=== PATIENT | male | born 1970 | race Caucasian/White ===

== ENCOUNTER 2019-10-28 17:42 | Inpatient (IN) | payer MEDICAID, OTHER ==
[~2019-10-28] VITALS: Ht 172.7 cm; Wt 125.6 kg
[2019-10-28 18:48] LABS: BASOPHILS # (AUTO) 0.1 X10'3 (0-0.2); EOSINOPHILS # (AUTO) 0.3 X10'3 (0-0.9); EOSINOPHILS % (AUTO) 2.5 % (0-6); HEMATOCRIT 44.6 % (42.0-52.0); HEMOGLOBIN 14.9 g/dl (14.0-17.9); LYMPHOCYTES # (AUTO) 2.5 X10'3 (1.1-4.8); LYMPHOCYTES % (AUTO) 24.7 % (21-51); MEAN CORPUSCULAR HEMOGLOBIN 33.2 PG (27.0-31.0); MEAN CORPUSCULAR HGB CONC 33.4 g/dL (33.0-36.5); MEAN CORPUSCULAR VOLUME 99.3 FL (78-98); MEAN PLATELET VOLUME 9.4 FL (7.4-10.4); MONOCYTES # (AUTO) 1.3 X10'3 (0-0.9); MONOCYTES % (AUTO) 13.1 % (2-12); NEUTROPHILS # (AUTO) 5.9 X10'3 (1.8-7.7); NEUTROPHILS % (AUTO) 58.7 % (42-75); PLATELET COUNT 274 X10'3 (140-440); RED BLOOD COUNT 4.49 X10'6 (4.70-6.10); RED CELL DISTRIBUTION WIDTH 15.1 % (11.5-14.5); WHITE BLOOD COUNT 10.1 X10'3 (4.5-11.0)
[2019-10-28 19:00] LABS: ALANINE AMINOTRANSFERASE 41 U/L (12-78); ALBUMIN 3.3 G/DL (3.4-5.0); ALBUMIN/GLOBULIN RATIO 0.7 (1.1-1.5); ALKALINE PHOSPHATASE 109 IU/L (46-116); ANION GAP 8 (8-16); ASPARTATE AMINO TRANSFERASE 25 U/L (10-37); BILIRUBIN,TOTAL 0.6 MG/DL (0.1-1.0); BLOOD UREA NITROGEN 19 MG/DL (7-18); BUN/CREATININE RATIO 17.4 (5.4-32.0); CALCIUM 9.3 MG/DL (8.5-10.1); CHLORIDE 97 MMOL/L (99-107); CREATININE 1.09 MG/DL (0.60-1.10); GLUCOSE 112 MG/DL (70-104); POTASSIUM 3.6 MMOL/L (3.5-5.1); SODIUM 135 MMOL/L (135-145); TOTAL CARBON DIOXIDE 30.3 MMOL/L (24-32); TOTAL PROTEIN 8.1 G/DL (6.4-8.2); eGFR 72 ML/MIN
[2019-10-28] MEDS ORDERED: furosemide 10 MG/1 ML 10ml inj IV ONE (19:20)
[2019-10-28] MEDS ORDERED: acetaminophen 325mg tablet PO PRN (19:25)
[2019-10-28] MEDS ORDERED: potassium CL 10mEq/100ml bag 100 ML IV PRN ×2 (19:25)
[2019-10-28] MEDS ORDERED: magnesium 2GM in 50ml NS 50 ML IV PRN (19:25)
[2019-10-28] MEDS ORDERED: magnesium Cl slow-release 64mg tablet PO PRN (19:25)
[2019-10-28] MEDS ORDERED: magnesium 4gm in 100ml NS 100 ML IV PRN (19:25)
[2019-10-28] MEDS ORDERED: ondansetron/PF 4mg/2ml inj IV PRN (19:25)
[2019-10-28] MEDS ORDERED: potassium Cl 20 mEq SR tablet PO PRN ×2 (19:25)
[2019-10-28] MEDS ORDERED: heparin, porcine 5000 units/ml vial SQ SCH (20:00)
[2019-10-28] MEDS ORDERED: CARV6.253 PO (20:25)
[2019-10-28] MEDS ORDERED: POTA10TA19 PO (20:25)
[2019-10-28] MEDS ORDERED: LISI-604 PO (20:25)
[2019-10-28] MEDS ORDERED: FURO80TA3 PO (20:25)
[2019-10-28] MEDS ORDERED: SIMV-42 PO (20:25)
[2019-10-28] MEDS ORDERED: SPIR25TA5 PO (20:25)
[2019-10-28] MEDS ORDERED: DABI150C PO (20:25)
[2019-10-28] MEDS ORDERED: DIGO125T PO (20:25)
[2019-10-28 21:00] VITALS: BP 117/85
[2019-10-28 23:00] VITALS: BP 115/77
[2019-10-28] MEDS: digoxin 125mcg (0.125mg) tablet PO SCH (23:35)
[2019-10-28] MEDS: lisinopril 5mg tablet PO SCH (23:35)
[2019-10-29] VITALS (7 sets, daily range): BP systolic 97–131; BP diastolic 69–85
[2019-10-29] MEDS ORDERED: piperacillin/tazo 3.375gm/50ml 50 ML IV SCH ×2 (00:23)
--- NOTE | 2019-10-29 00:50 | NUR ---
RE Non-admin of Digoxin & Lisinopril: Patient reports last taking his daily medications at 1600 11/ including Digoxin & Lisinopril. Next scheduled doses are scheduled for 0800 12/
[2019-10-29 00:59] LABS: ALBUMIN 3.1 G/DL (3.4-5.0); ANION GAP 6 (8-16); BLOOD UREA NITROGEN 19 MG/DL (7-18); BUN/CREATININE RATIO 16.8 (5.4-32.0); CALCIUM 8.9 MG/DL (8.5-10.1); CHLORIDE 98 MMOL/L (99-107); CREATININE 1.13 MG/DL (0.60-1.10); GLUCOSE 101 MG/DL (70-104); MAGNESIUM 1.8 MG/DL (1.5-2.4); POTASSIUM 3.5 MMOL/L (3.5-5.1); SODIUM 137 MMOL/L (135-145); TOTAL CARBON DIOXIDE 32.6 MMOL/L (24-32); eGFR 69 ML/MIN
[2019-10-29 06:04] LABS: BASOPHILS # (AUTO) 0.1 X10'3 (0-0.2); EOSINOPHILS # (AUTO) 0.2 X10'3 (0-0.9); EOSINOPHILS % (AUTO) 1.9 % (0-6); HEMATOCRIT 42.8 % (42.0-52.0); HEMOGLOBIN 14.5 g/dl (14.0-17.9); LYMPHOCYTES # (AUTO) 2.5 X10'3 (1.1-4.8); LYMPHOCYTES % (AUTO) 23.3 % (21-51); MEAN CORPUSCULAR HEMOGLOBIN 33.5 PG (27.0-31.0); MEAN CORPUSCULAR HGB CONC 33.8 g/dL (33.0-36.5); MEAN CORPUSCULAR VOLUME 98.9 FL (78-98); MEAN PLATELET VOLUME 9.5 FL (7.4-10.4); MONOCYTES # (AUTO) 1.4 X10'3 (0-0.9); MONOCYTES % (AUTO) 12.9 % (2-12); NEUTROPHILS # (AUTO) 6.5 X10'3 (1.8-7.7); NEUTROPHILS % (AUTO) 60.9 % (42-75); PLATELET COUNT 267 X10'3 (140-440); RED BLOOD COUNT 4.33 X10'6 (4.70-6.10); RED CELL DISTRIBUTION WIDTH 15.1 % (11.5-14.5); WHITE BLOOD COUNT 10.6 X10'3 (4.5-11.0)
--- NOTE | 2019-10-29 06:37 | NUR ---
Problems reprioritized. Patient report given, questions answered & plan of care reviewed with Josey RN.
--- NOTE | 2019-10-29 06:45 | NUR ---
Patient in room PCU 3018. I have received report from MARYBETH Gallego and had the opportunity to ask questions and assume patient care.
[2019-10-29] MEDS: spironolactone 25 MG tablet PO SCH (07:50)
[2019-10-29] MEDS: furosemide 40mg/4ml inj IV SCH ×2 (07:54→20:29)
[2019-10-29] MEDS: digoxin 125mcg (0.125mg) tablet PO SCH (07:55)
[2019-10-29] MEDS: carvedilol 6.25mg tablet PO SCH ×2 (07:56→20:31)
[2019-10-29] MEDS: K and/or MAG REPLACEMENT MC SCH (08:00)
[2019-10-29] MEDS: lisinopril 5mg tablet PO SCH (08:05)
[2019-10-29] MEDS: dabigatran 150mg capsule PO SCH ×2 (08:05→20:31)
[2019-10-29] MEDS: cefepime 1GM in D5W 50mL 50 ML IV SCH ×2 (09:35→17:01)
--- NOTE | 2019-10-29 13:00 | NUR ---
Problems reprioritized. Patient report given, questions answered & plan of care reviewed with MARYBETH Cortes. Pt moving to [facility].
--- NOTE | 2019-10-29 13:15 | NUR ---
Pt transferred to [facility] unit with all belongings.
--- NOTE | 2019-10-29 13:20 | NUR ---
Arrived to room 316 on [facility] unit at this time, Josey reported/transferred care to this nurse.
--- NOTE | 2019-10-29 18:00 | NUR ---
Patient in room MED 316. I have received report from Sophia RUEDA and had the opportunity to ask questions and assume patient care.
--- NOTE | 2019-10-29 18:20 | NUR ---
Problems reprioritized. Patient report given, questions answered & plan of care reviewed with Zita RUEDA.
--- NOTE | 2019-10-29 19:40 | NUR ---
PT C/O PAIN 06/07 IN HIS BACK. NO PAIN MEDICATIONS ORDERED. CALLED DR. GRIFFIN FOR PAIN MEDICATION. ORDERS RECEIVED.
[2019-10-29] MEDS: lactobacillus rhamnosus 10,000 MMU CELLS/CAPSULE PO SCH (20:30)
[2019-10-29] MEDS: atorvastatin 10mg tablet PO SCH (20:31)
[2019-10-29] MEDS: oxyCODONE/APAP 5-325mg tablet PO PRN (20:31)
[2019-10-29] MEDS ORDERED: VANCOMYCIN LEVEL IV ONE (23:30)
[2019-10-30] MEDS: cefepime 1GM in D5W 50mL 50 ML IV SCH ×3 (00:45→15:30)
[2019-10-30 02:00] VITALS: BP 125/65
[2019-10-30 04:24] LABS: BASOPHILS # (AUTO) 0.1 X10'3 (0-0.2); BASOPHILS % (AUTO) 1.3 % (0-1); EOSINOPHILS # (AUTO) 0.2 X10'3 (0-0.9); EOSINOPHILS % (AUTO) 2.2 % (0-6); HEMATOCRIT 42.7 % (42.0-52.0); HEMOGLOBIN 14.2 g/dl (14.0-17.9); LYMPHOCYTES # (AUTO) 2.9 X10'3 (1.1-4.8); LYMPHOCYTES % (AUTO) 26.9 % (21-51); MEAN CORPUSCULAR HEMOGLOBIN 32.6 PG (27.0-31.0); MEAN CORPUSCULAR HGB CONC 33.3 g/dL (33.0-36.5); MEAN CORPUSCULAR VOLUME 97.8 FL (78-98); MEAN PLATELET VOLUME 9.6 FL (7.4-10.4); MONOCYTES # (AUTO) 1.3 X10'3 (0-0.9); MONOCYTES % (AUTO) 12.2 % (2-12); NEUTROPHILS # (AUTO) 6.1 X10'3 (1.8-7.7); NEUTROPHILS % (AUTO) 57.4 % (42-75); PLATELET COUNT 268 X10'3 (140-440); RED BLOOD COUNT 4.37 X10'6 (4.70-6.10); RED CELL DISTRIBUTION WIDTH 14.9 % (11.5-14.5); WHITE BLOOD COUNT 10.6 X10'3 (4.5-11.0)
[2019-10-30 04:32] LABS: ALBUMIN 3.1 G/DL (3.4-5.0); ANION GAP 8 (8-16); BLOOD UREA NITROGEN 22 MG/DL (7-18); BUN/CREATININE RATIO 18.6 (5.4-32.0); CALCIUM 8.8 MG/DL (8.5-10.1); CHLORIDE 99 MMOL/L (99-107); CREATININE 1.18 MG/DL (0.60-1.10); GLUCOSE 105 MG/DL (70-104); MAGNESIUM 1.8 MG/DL (1.5-2.4); POTASSIUM 3.6 MMOL/L (3.5-5.1); SODIUM 138 MMOL/L (135-145); TOTAL CARBON DIOXIDE 30.6 MMOL/L (24-32); eGFR 66 ML/MIN
[2019-10-30 06:00] VITALS: BP 111/79
--- NOTE | 2019-10-30 06:15 | NUR ---
Patient in room MED 316. I have received report from MARYBETH Ahumada and had the opportunity to ask questions and assume patient care.
[2019-10-30] MEDS: oxyCODONE/APAP 5-325mg tablet PO PRN ×2 (07:16→22:52)
[2019-10-30] MEDS: lactobacillus rhamnosus 10,000 MMU CELLS/CAPSULE PO SCH ×2 (07:17→20:57)
[2019-10-30] MEDS: carvedilol 6.25mg tablet PO SCH ×2 (07:17→20:57)
[2019-10-30] MEDS: lisinopril 5mg tablet PO SCH (07:17)
[2019-10-30] MEDS: digoxin 125mcg (0.125mg) tablet PO SCH (07:19)
[2019-10-30] MEDS: K and/or MAG REPLACEMENT MC SCH (07:19)
[2019-10-30] MEDS: spironolactone 25 MG tablet PO SCH (07:19)
[2019-10-30] MEDS: furosemide 40mg/4ml inj IV SCH ×2 (07:19→20:57)
[2019-10-30] MEDS: dabigatran 150mg capsule PO SCH ×2 (08:37→20:57)
[2019-10-30] MEDS: VANCOmycin 1250MG/NS 250ml Bag 250 ML IV SCH ×2 (08:38→16:20)
--- NOTE | 2019-10-30 10:53 | NUR ---
[place] documentation: I have reviewed and agree with all interventions, assessments performed and documented by Herlinda RUEDA. [place] Medication Administration: For this medication-pass time frame, all medication were reviewed, dispensed, administered and documented per hospital policy by Herlinda RUEDA.
[2019-10-30 11:00] VITALS: BP 107/72
[2019-10-30 18:00] VITALS: BP 133/91
--- NOTE | 2019-10-30 18:20 | NUR ---
received report from MARYBETH Cortes
--- NOTE | 2019-10-30 18:28 | NUR ---
Problems reprioritized. Patient report given, questions answered & plan of care reviewed with MARYBETH Spencer.
[2019-10-30] MEDS: atorvastatin 10mg tablet PO SCH (20:57)
[2019-10-30 22:00] VITALS: BP 116/76
[2019-10-30] MEDS ORDERED: VANCOMYCIN LEVEL IV ONE (23:30)
[2019-10-31] MEDS: VANCOmycin 1250MG/NS 250ml Bag 250 ML IV SCH
--- NOTE | 2019-10-31 | NUR ---
pt had a 5 run of v-tach on 2229--pt has AICD. hospitalist notified. will continue to monitor.
[2019-10-31] MEDS: cefepime 1GM in D5W 50mL 50 ML IV SCH ×2 (00:05→08:00)
--- NOTE | 2019-10-31 00:30 | NUR ---
critical vanco level of 21.8, pharmacy notified to adjust dose.
[2019-10-31 02:00] VITALS: BP 120/84
--- NOTE | 2019-10-31 03:21 | NUR ---
going on tele 25, telecom specialist notified
[2019-10-31 06:00] VITALS: BP 121/78
[2019-10-31 06:18] LABS: BASOPHILS # (AUTO) 0.1 X10'3 (0-0.2); EOSINOPHILS # (AUTO) 0.2 X10'3 (0-0.9); HEMATOCRIT 43.3 % (42.0-52.0); HEMOGLOBIN 14.3 g/dl (14.0-17.9); LYMPHOCYTES # (AUTO) 2.2 X10'3 (1.1-4.8); LYMPHOCYTES % (AUTO) 21.3 % (21-51); MEAN CORPUSCULAR HEMOGLOBIN 33.1 PG (27.0-31.0); MEAN CORPUSCULAR VOLUME 100.2 FL (78-98); MEAN PLATELET VOLUME 10.4 FL (7.4-10.4); MONOCYTES # (AUTO) 1.3 X10'3 (0-0.9); MONOCYTES % (AUTO) 12.9 % (2-12); NEUTROPHILS # (AUTO) 6.5 X10'3 (1.8-7.7); NEUTROPHILS % (AUTO) 62.8 % (42-75); PLATELET COUNT 287 X10'3 (140-440); RED BLOOD COUNT 4.32 X10'6 (4.70-6.10); RED CELL DISTRIBUTION WIDTH 14.9 % (11.5-14.5); WHITE BLOOD COUNT 10.3 X10'3 (4.5-11.0)
--- NOTE | 2019-10-31 06:20 | NUR ---
Patient in room MED 316. I have received report from MARYBETH Spencer and had the opportunity to ask questions and assume patient care.
--- NOTE | 2019-10-31 06:40 | NUR ---
gave report fernandez Fairchild RN and Herlinda RUEDA "o"
[2019-10-31 06:52] LABS: ALBUMIN 3.1 G/DL (3.4-5.0); ANION GAP 7 (8-16); BLOOD UREA NITROGEN 21 MG/DL (7-18); BUN/CREATININE RATIO 18.6 (5.4-32.0); CHLORIDE 99 MMOL/L (99-107); CREATININE 1.13 MG/DL (0.60-1.10); GLUCOSE 92 MG/DL (70-104); MAGNESIUM 1.9 MG/DL (1.5-2.4); POTASSIUM 3.6 MMOL/L (3.5-5.1); SODIUM 138 MMOL/L (135-145); TOTAL CARBON DIOXIDE 31.8 MMOL/L (24-32); eGFR 69 ML/MIN
[2019-10-31] MEDS: carvedilol 6.25mg tablet PO SCH (08:00)
[2019-10-31] MEDS: dabigatran 150mg capsule PO SCH (08:00)
[2019-10-31] MEDS: K and/or MAG REPLACEMENT MC SCH (08:00)
[2019-10-31] MEDS: furosemide 40mg/4ml inj IV SCH (08:00)
[2019-10-31] MEDS: digoxin 125mcg (0.125mg) tablet PO SCH (08:00)
[2019-10-31] MEDS: lisinopril 5mg tablet PO SCH (08:00)
[2019-10-31] MEDS: lactobacillus rhamnosus 10,000 MMU CELLS/CAPSULE PO SCH (08:00)
[2019-10-31] MEDS: spironolactone 25 MG tablet PO SCH (08:00)
[2019-10-31] MEDS ORDERED: AMOX-580 PO (08:10)
[2019-10-31] MEDS ORDERED: vancomycin/NS 1 GM ADD-VANTAGE 250 ML IV SCH (09:00)
--- NOTE | 2019-10-31 11:07 | NUR ---
Patient stable for discharge per MD orders. All discharge instructions reviewed with patient, prescription handed to patient. Educated on importance of completing antibiotic regimen. All questions answered. security monitor removed, PIV discontinued. Cannula intact, clean, dry dressing in place. All belongings collected and sent with patient. Patient ambulated out of facility with hospital personnel at 1107.
[2019-11-01] MEDS ORDERED: VANCOMYCIN LEVEL IV ONE (08:30)
== END 2019-10-31 11:07 | disposition home or self-care (01) | DRG 194 ==
LOC: ER 17:43 → ED HOLD 19:29 → EDBEDREQ 20:26 → PCU 3S 21:10 → MED 3N 10-29 13:20
PROVIDERS: ADMIT Internal Medicine; ATTEND Family Medicine
DX: I11.0 Hypertensive heart disease with heart failure (principal); I21.A1 Myocardial infarction type 2; Z79.01 Long term (current) use of anticoagulants; L03.115 Cellulitis of right lower limb; I50.23 Acute on chronic systolic (congestive) heart failure; L03.116 Cellulitis of left lower limb; I34.0 Nonrheumatic mitral (valve) insufficiency; E78.5 Hyperlipidemia, unspecified; F12.90 Cannabis use, unspecified, uncomplicated; I48.20 Chronic atrial fibrillation, unspecified; F17.210 Nicotine dependence, cigarettes, uncomplicated; Z95.810 Presence of automatic (implantable) cardiac defibrillator; Z79.899 Other long term (current) drug therapy
CPT/HCPCS: 36415; 71045; 80048; 80053; 80162; 80202; 83605; 83735; 83880; 84484; 85025; 87040; 87081; 93005; 93306; 96374; 99285; G0378; J0692; J1644; J1940; J2543; J3370